=== PATIENT | male | born 1950 | race Caucasian/White ===

== ENCOUNTER → 2019-04-14 12:13 | Outpatient (CLI) | payer MEDICARE, SELFPAY ==
--- NOTE | ~2019-04-14 | XR_ITS ---
EXAMINATION: XR chest 2V DATE: 04/14/2019 12:37 INDICATION: Nicotine dependence, unspecified, uncomplicated. TECHNIQUE: Frontal and lateral views of the chest were obtained. COMPARISON: None. FINDINGS: There is mild scarring at the lung apices. No pleural effusion or pneumothorax. The heart s ize is normal. IMPRESSION: 1. Mild scarring at the lung apices. Reviewed, dictated and finalized at location A. 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
== END ==
PROVIDERS: PCP Family Medicine; Visit Provider Family Medicine
DX: F17.200 Nicotine dependence, unspecified, uncomplicated (principal); R91.8 Other nonspecific abnormal finding of lung field
CPT/HCPCS: 71046

== ENCOUNTER 2019-05-07 01:00 | Day surgery (SDC) | payer MEDICARE, SELFPAY ==
[2019-04-29 13:26] VITALS: BMI 30.9
--- NOTE | 2019-05-07 09:04 | P.CONGI_ITS ---
Assessment and Plan Additional Plan This is a 68-year-old white male patient seen in evaluation at the request of Dr. Jose Antonio Pizarro. Patient presents for colonoscopy. His past history is significant for colon polyps by endoscopy more than 20 years ago. His current weight appetite bowel movements are normal. He has had no recent colonoscopy. He states his bowel habits are normal. He denies any blood in his stools. Family history is noncontributory. Past medical history significant for hypertension. Medications include Bystolic. And isosorbide mononitrate. He has no stated drug allergies. Physical exam reveals him to be alert. Vital signs stable. HEENT exam unremarkable. Lungs are clear to auscultation and percussion. Heart is without murmur or extra sounds. Abdominal exam bowel sounds are present soft nontender with no hepatosplenomegaly. Digital external rectal exam is normal. Impression 1. Personal history of colon polyps. Plan is for screening colonoscopy. GI Consult Note Consult date/time: 05/07/19 09:04 HPI: Daniel Wang is a 68 year old male [facility] Social History Social History Smoking status: Never smoker Smokeless tobacco user: chewing tobacco Alcohol intake: current Drinks per week: 14 Meds Home Medications and Allergies Home Medications Medication Instructions Recorded Confirmed Type isosorbide mononitrate 30 mg 30 mg PO DAILY #30 tablet 04/14/19 05/06/19 Rx tablet,extended release 24 hr nebivolol 20 mg tablet 20 mg PO DAILY #30 tablet 04/14/19 05/06/19 Rx aspirin [Adult Low Dose Aspirin] 81 mg PO DAILY 04/29/19 05/06/19 History lisinopril 20 mg tablet 20 mg PO DAILY #30 tablet 05/06/19 05/06/19 Rx Allergies Allergy/AdvReac Type Severity Reaction Status Date / Time No Known Allergies Allergy Verified 05/07/19 08:45
[2019-05-07 09:07] VITALS: BP 166/84; PULSE 50; RESP 20; TEMP 36.3; O2SAT 99; BMI 31.1
--- NOTE | 2019-05-07 09:23 | P.PNAN_ITS ---
Anes - Initial Pre Proc Eval Procedure: Operation Date: 05/07/19 09:30 Proposed Procedures p Screening Colonoscopy - Jose R Greene MD Date/Time: 05/07/19 09:23 Surgeon: Jose R Greene MD Pre Op Diagnosis: Hx Colon Polyps Patient Data Age: 68 Gender: M Height: 5 ft 9 in Weight: 95.5 kg Last Vital Signs Temp 97.4 F L 05/07/19 09:07 Pulse 50 L 05/07/19 09:07 Resp 20 05/07/19 09:07 BP 166/84 H 05/07/19 09:07 Pulse Ox 99 05/07/19 09:07 Allergies Allergy/AdvReac Type Severity Reaction Status Date / Time No Known Allergies Allergy Verified 05/07/19 08:45 Home Medications Medication Instructions Recorded Confirmed Type isosorbide mononitrate 30 mg 30 mg PO DAILY #30 tablet 04/14/19 05/06/19 Rx tablet,extended release 24 hr nebivolol 20 mg tablet 20 mg PO DAILY #30 tablet 04/14/19 05/06/19 Rx aspirin [Adult Low Dose Aspirin] 81 mg PO DAILY 04/29/19 05/06/19 History lisinopril 20 mg tablet 20 mg PO DAILY #30 tablet 05/06/19 05/07/19 Rx Patient hx anesthesia problems: none Family hx anesthesia problems: none [facility] Social History Social History Smoking status: Never smoker Smokeless tobacco user: chewing tobacco Alcohol intake: current Drinks per week: 14 Anes - Eval Final PreProcedure Day of Procedure 05/07/19 09:23 Patient weight: obese Heart: regular rate and rhythm Lungs: clear to auscultation Airway: Mallampati scale class II Neurological: alert and oriented Last oral intake: >/= 8 hours ASA classification: III Emergent: no Anesthetic plan: proceed Anesthesia type and monitoring: general and standard monitoring Informed Consent: The patient's anesthetic plan and its attendant risks and benefits were discussed with the patient/family/POA. Questions were solicited and answers provided to the satisfaction of the patient/family/POA.
[2019-05-07] MEDS: LACTATED RINGERS 1,000 ML 150 ML IV CONT ×2 (10:19→10:29)
[2019-05-07 10:52] VITALS: BP 134/58; PULSE 46; RESP 23; O2SAT 99
[2019-05-07 11:02] VITALS: BP 139/65; PULSE 46; RESP 23; O2SAT 99
[2019-05-07 11:04] VITALS: BP 162/76; PULSE 52; RESP 25; O2SAT 100
== END 2019-05-07 11:33 | disposition home or self-care (01) ==
PROVIDERS: PCP Family Medicine; Visit Provider Internal Medicine Gastroenterology
PROC: 0DJD8ZZ Inspection of Lower Intestinal Tract, Via Natural or Artificial Opening Endoscopic (ICD-10-PCS; CPT 45378; principal; 2019-05-07 09:30)
DX: Z12.11 Encounter for screening for malignant neoplasm of colon (principal); I10 Essential (primary) hypertension; F17.220 Nicotine dependence, chewing tobacco, uncomplicated; D12.2 Benign neoplasm of ascending colon; K63.5 Polyp of colon; K57.30 Diverticulosis of large intestine without perforation or abscess without bleeding; K64.8 Other hemorrhoids; Z79.82 Long term (current) use of aspirin; E66.9 Obesity, unspecified; Z68.31 Body mass index [BMI] 31.0-31.9, adult
CPT/HCPCS: 45385; 88305; J2704; J7120

== ENCOUNTER 2019-06-23 13:20 | Outpatient (CLI) | payer MEDICARE, SELFPAY ==
--- NOTE | 2019-06-23 | ECHO_ITS ---
Patient Info Name: Daniel Wang Age: 68 years : 1950 Gender: Male Ht: 69 in Wt: 210 lbs BSA: 2.18 m2 HR: 58 bpm BP: 182 / 80 mmHg Technical Quality: Good Exam Date: 06/23/2019 2:00 PM Exam Location: [facility] Patient Status: Outpatient Admit Date: 06/23/2019 Staff Ordering Physician: Jarod Ansari DO Efficiency Miner: Tomer Aldana RDCS, RT Attending Provider: Jarod Ansari DO Referring Physician: Elan ELAM; Exam Type: CA echo doppler color flow Study Info Indications R06.00 - Dyspnea, unspecified Complete two-dimensional, color flow and Doppler transthoracic echocardiogram is performed. Summary 1. Left ventricular chamber dimension is moderately enlarged. 2. Left ventricular systolic function is normal, estimated at 55-60%. 3. The left ventricular diastolic function is abnormal. 4. E/e' 10 is mildly elevated. 5. Global longitudinal strain is abnormal at -13.2%. 6. Left atrial chamber dimension is mildly enlarged. 7. There is mild aortic valve sclerosis. 8. There is mild to moderate aortic valve regurgitation. 9. There is mild to moderate mitral valve regurgitation. 10. Normal inferior vena cava with <50% collapse upon inspiration consistent with elevated right atrial pressure, 10 mmHg. Left Ventricle E/e' 10 is mildly elevated. Global longitudinal strain is abnormal at -13.2%. Left ventricular chamber dimension is moderately enlarged. Left ventricular systolic function is normal, estimated at 55-60%. The left ventricular diastolic function is abnormal. Right Ventricle Right ventricular chamber dimension is normal. Right ventricular systolic function is normal. Left Atria Left atrial chamber dimension is mildly enlarged. Right Atria Right atrial chamber dimension is normal. Aortic Valve The aortic valve is trileaflet. There is mild aortic valve sclerosis. There is no aortic valve stenosis. There is mild to moderate aortic valve regurgitation. Pulmonic Valve There is no pulmonic regurgitation. Mitral Valve There is no mitral valve stenosis. There is mild to moderate mitral valve regurgitation. Tricuspid Valve There is no tricuspid valve regurgitation. Pericardium/Pleural There is no pericardial effusion. Inferior Vena Cava Normal inferior vena cava with <50% collapse upon inspiration consistent with elevated right atrial pressure, 10 mmHg. Aorta The aortic root size at the sinus of Valsalva is normal. Left Ventricular Outflow Tract Name Value Normal LVOT 2D LVOT Diameter 2.3 cm LVOT Doppler LVOT Peak Gradient 4 mmHg LVOT Mean Gradient 2 mmHg LVOT VTI 24 cm LVOT VTI/AV VTI Ratio 0.7 LVOT Stroke Volume 97 ml LVOT CO 4.3 l/min LVOT CI 2.0 l/min/m2 Pulmonic Valve Name Value Normal
== END 2019-06-23 13:21 | disposition home or self-care (01) ==
PROVIDERS: PCP Family Medicine; Visit Provider Internal Medicine Cardiovascular Disease
DX: R06.09 Other forms of dyspnea (principal); I08.3 Combined rheumatic disorders of mitral, aortic and tricuspid valves
CPT/HCPCS: 93306

== ENCOUNTER 2021-07-28 12:16 | Outpatient (CLI) | payer MEDICARE, SELFPAY ==
[2021-07-28 13:06] LABS: Alanine Aminotransferase 13 U/L (4-50); Albumin Level 4.2 g/dL (3.5-5.1); Alkaline Phosphatase 79 U/L (38-126); Anion Gap 8 mmol/L (8-16); Aspartate Amino Transferase 25 U/L (17-59); Blood Urea Nitrogen 14 mg/dL (9-20); Calcium 8.8 mg/dL (8.4-10.2); Carbon Dioxide 25 mmol/L (22-30); Chloride 106 mmol/L (98-107); Cholesterol 143 mg/dL (0-200); Estimated Glomerular Filt Rate > 60; Glucose 102 mg/dL (65-110); HDL Direct 49 mg/dL; Potassium 4.1 mmol/L (3.4-5.0); Sodium 139 mmol/L (137-145); Triglycerides 89 mg/dL (<150)
[2021-07-28 13:16] LABS: LDL Cholesterol Direct 69 mg/dL
== END 2021-07-28 12:17 | disposition home or self-care (01) ==
PROVIDERS: PCP Family Medicine; Visit Provider Internal Medicine Cardiovascular Disease
DX: E78.5 Hyperlipidemia, unspecified (principal)
CPT/HCPCS: 36415; 80053; 80061

== ENCOUNTER 2021-08-18 08:38 | Outpatient (CLI) | payer MEDICARE, SELFPAY ==
[2021-08-18 19:04] LABS: Hematocrit 49.2 % (42.0-52.0); Mean Corpuscular HGB Conc 32.5 g/dl (32-36); Mean Corpuscular Hemoglobin 30.3 pg (26-34); Mean Corpuscular Volume 93.2 fl (80-100); Platelet Count Result 145 k/mm3 (150-375); Red Blood Count 5.28 M/mm3 (4.6-6.20); Red Cell Distribution Width 13.7 % (11.5-14.5); White Blood Count 6.1 K/mm3 (4.5-10.0)
[2021-08-18 19:47] LABS: Prostate Specific Antigen 6.6 ng/mL (< OR = 4.0)
[2021-08-23 13:11] LABS: Testosterone Free 56.1 pg/mL (30.0-135.0); Testosterone Total 524 ng/dL (250-1100)
== END 2021-08-18 08:39 | disposition home or self-care (01) ==
PROVIDERS: PCP Family Medicine; Visit Provider Family Medicine
DX: Z12.5 Encounter for screening for malignant neoplasm of prostate (principal); I25.10 Atherosclerotic heart disease of native coronary artery without angina pectoris; Z00.00 Encounter for general adult medical examination without abnormal findings; E78.5 Hyperlipidemia, unspecified; R53.83 Other fatigue
CPT/HCPCS: 36415; 84153; 84402; 84403; 84443; 85027; G0103

== ENCOUNTER 2021-09-25 08:18 | Outpatient (CLI) | payer MEDICARE, SELFPAY ==
[2021-09-25 19:04] LABS: Prostate Specific Antigen 6.3 ng/mL (< OR = 4.0)
== END 2021-09-25 08:19 | disposition home or self-care (01) ==
PROVIDERS: PCP Family Medicine; Visit Provider Family Medicine
DX: R97.20 Elevated prostate specific antigen [PSA] (principal); Z12.5 Encounter for screening for malignant neoplasm of prostate
CPT/HCPCS: 36415; 84153; G0103

== ENCOUNTER 2022-11-12 11:55 | Outpatient (CLI) | payer MEDICARE, SELFPAY ==
--- NOTE | 2022-11-12 12:41 | ECHO_ITS ---
Patient Info Name: Daniel Wang Age: 71 years : 1950 Gender: Male Ht: 67 in Wt: 190 lbs BSA: 2.04 m2 HR: 68 bpm BP: 149 / 65 mmHg Technical Quality: Fair Exam Date: 11/12/2022 1:00 PM Exam Location: [facility] Patient Status: Outpatient Admit Date: 11/12/2022 Staff Ordering Physician: Jarod Ansari DO Store Cashier: Kemi Crane CT Attending Provider: Jarod Ansari DO Referring Physician: Elan ELAM; Exam Type: CA echo doppler color flow Study Info Indications - ESSENTIAL PRIMARY HYPERTENSION Complete two-dimensional, color flow and Doppler transthoracic echocardiogram is performed. Summary 1. Complete two-dimensional, color flow and Doppler transthoracic echocardiogram is performed. 2. Left ventricular chamber dimension is mildly enlarged. 3. Left ventricular systolic function is normal, estimated at 55-60%. 4. There is mild concentric increased left ventricular wall thickness. 5. The left ventricular diastolic function is abnormal. 6. E/e' 11 is mildly elevated. 7. Left atrial chamber dimension is moderately enlarged. 8. Right atrial chamber dimension is mildly enlarged. 9. There is mild to moderate aortic valve regurgitation. 10. There is mild mitral valve regurgitation. 11. There is mild tricuspid valve regurgitation. 12. No pulmonary hypertension, estimated pulmonary arterial systolic pressure is 37 mmHg. Left Ventricle E/e' 11 is mildly elevated. Left ventricular chamber dimension is mildly enlarged. Left ventricular systolic function is normal, estimated at 55-60%. There is mild concentric increased left ventricular wall thickness. The left ventricular diastolic function is abnormal. Right Ventricle Right ventricular chamber dimension is normal. Right ventricular systolic function is normal. Left Atria Left atrial chamber dimension is moderately enlarged. Right Atria Right atrial chamber dimension is mildly enlarged. Aortic Valve The aortic valve is trileaflet. There is no aortic valve stenosis. There is mild to moderate aortic valve regurgitation. Pulmonic Valve There is no pulmonic regurgitation. Mitral Valve There is no mitral valve stenosis. There is mild mitral valve regurgitation. Tricuspid Valve There is mild tricuspid valve regurgitation. No pulmonary hypertension, estimated pulmonary arterial systolic pressure is 37 mmHg. Pericardium/Pleural There is no pericardial effusion. Inferior Vena Cava Normal inferior vena cava with >50% collapse upon inspiration consistent with normal right atrial pressure, 5 mmHg. Aorta The aortic root size at the sinus of Valsalva is normal. Left Ventricular Outflow Tract Name Value Normal LVOT 2D LVOT Diameter 2.0 cm LVOT Doppler LVOT Peak Gradient 5 mmHg LVOT Mean Gradient 2 mmHg LVOT VTI 25 cm LVOT VTI/AV VTI Ratio 0.8 LVOT Stroke Volume 77 ml LVOT CO 12.5 l/min LVOT CI 6.1 l/min/m2 Pulmonic Valve Name
[2022-11-12 12:55] LABS: Alanine Aminotransferase 16 U/L (6-50); Alkaline Phosphatase 86 U/L (38-126); Anion Gap 4 mmol/L (8-16); Aspartate Amino Transferase 22 U/L (17-59); Bilirubin,Total 0.7 mg/dL (0.2-1.3); Blood Urea Nitrogen 9 mg/dL (9-20); Carbon Dioxide 28 mmol/L (22-30); Chloride 104 mmol/L (98-107); Cholesterol 142 mg/dL (0-200); Estimated Glomerular Filt Rate > 60; Glucose 106 mg/dL (65-110); HDL Direct 64 mg/dL; Potassium 3.8 mmol/L (3.4-5.0); Sodium 136 mmol/L (137-145); Triglycerides 96 mg/dL (<150)
[2022-11-12 12:58] LABS: Hemoglobin A1C 5.2 % (<5.7)
[2022-11-12 13:06] LABS: LDL Cholesterol Direct 55 mg/dL
== END 2022-11-12 11:56 | disposition home or self-care (01) ==
LOC: ANHCARD 12:08
PROVIDERS: PCP Family Medicine; Visit Provider Internal Medicine Cardiovascular Disease
DX: E78.5 Hyperlipidemia, unspecified (principal); Z79.899 Other long term (current) drug therapy; I34.0 Nonrheumatic mitral (valve) insufficiency; I35.1 Nonrheumatic aortic (valve) insufficiency; I36.1 Nonrheumatic tricuspid (valve) insufficiency
CPT/HCPCS: 36415; 80053; 80061; 83036; 93306

== ENCOUNTER 2024-09-15 09:58 | Outpatient (CLI) | payer MEDICARE, SELFPAY ==
[2024-09-15 10:19] LABS: Basophils Percent Auto 0.4 % (0.2-1.2); Eosinophils Absolute Auto 0.1 K/mm3 (0-0.3); Eosinophils Percent Auto 1.3 % (0-4.4); Hemoglobin 14.5 g/dL (14.0-18.0); Immature Granulocyte Absolute 0.02 K/mm3 (0.00-0.031); Immature Granulocyte Percent A 0.4 % (0-0.5); Immature Platelet Fraction Pct 4.8 % (0.9-11.2); Lymphocytes Absolute Auto 0.65 K/mm3 (0.9-3.2); Lymphocytes Percent Auto 14.4 % (18.3-44.2); Mean Corpuscular Hemoglobin 30.1 pg (26-34); Mean Corpuscular Volume 91.3 fl (80-100); Mean Platelet Volume 10.8 fl (7.4-10.4); Monocytes Absolute Auto 0.3 K/mm3 (0.1-0.6); Monocytes Percent Auto 7.3 % (2.6-8.5); Neutrophils Absolute Auto 3.4 K/mm3 (1.3-6.7); Neutrophils Percent Auto 76.2 % (45.5-73.1); Platelet Count Result 136 k/mm3 (150-375); Red Blood Count 4.82 M/mm3 (4.6-6.20); Red Cell Distribution Width 13.1 % (11.5-14.5); White Blood Count 4.5 K/mm3 (4.5-10.0)
[2024-09-15 10:27] LABS: Alanine Aminotransferase 17 U/L (6-50); Albumin Level 4.2 g/dL (3.5-5.1); Alkaline Phosphatase 85 U/L (38-126); Anion Gap 8 mmol/L (4-12); Aspartate Amino Transferase 31 U/L (17-59); Bilirubin,Total 0.8 mg/dL (0.2-1.3); Blood Urea Nitrogen 11 mg/dL (9-20); Calcium 9.6 mg/dL (8.4-10.2); Carbon Dioxide 24 mmol/L (22-30); Chloride 106 mmol/L (98-107); Cholesterol 159 mg/dL (0-200); Estimated Glomerular Filt Rate > 60; Glucose 102 mg/dL (65-110); HDL Direct 87 mg/dL; Potassium 3.9 mmol/L (3.4-5.0); Sodium 138 mmol/L (137-145); Total Protein 7.2 g/dL (6.3-8.2); Triglycerides 66 mg/dL (<150)
[2024-09-15 10:39] LABS: LDL Cholesterol Direct 54 mg/dL
--- OUTSIDE RECORDS SUMMARY | 2024-09-15 10:50 | XMS_ITS | Encounter Summary ---
Author Organization [employer] Address [address] [place] [address] Care Team Providers Care Primary Care Coordinator Name Role Phone Unavailable Primary Care Provider Unavailabl e Encounter Details Date Type Department Care Team (Latest Contact Info) Description 01/15/2001 Inpatient Historical HIS PATIENT IN A BED Aline Manuel MD [address] [place] [address] Major depressive disorder, single episode, unspecified (Primary Dx) Social History Tobacco Use Types Packs/Day Years Used Date Smoking Tobacco: Never Assessed Sex and Gender Information Value Date Recorded Sex Assigned at Not on file 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
--- OUTSIDE RECORDS SUMMARY | 2024-09-15 10:50 | XMS_ITS | Clinical Summary ---
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
[2024-09-15 11:47] LABS: Hemoglobin A1C 4.9 % (<5.7)
== END 2024-09-15 09:59 | disposition home or self-care (01) ==
PROVIDERS: PCP Family Medicine; Visit Provider Internal Medicine Cardiovascular Disease
DX: E78.5 Hyperlipidemia, unspecified (principal); R53.83 Other fatigue; Z79.899 Other long term (current) drug therapy
CPT/HCPCS: 36415; 80053; 80061; 83036; 84443; 85025; 85055